=== PATIENT | male | born 1980 | race Caucasian/White ===

== ENCOUNTER 2019-07-12 10:52 | Emergency (ER) | payer BC ==
[~2019-07-12] VITALS: Ht 185.4 cm; Wt 77.1 kg
--- NOTE | 2019-07-12 11:00 | NUR ---
Patient ambulated with stable gait. A/Ox4. Patient came for c/o bilateral wrist pain s/p fall last night. Denies any numbness or tingling, all pulses palpable in LUE. Pain is more dominant on the left side.
--- NOTE | 2019-07-12 11:06 | NUR ---
ERMD at bedside for MSE
[2019-07-12] MEDS ORDERED: IBUPROFEN 800 MG TABLET ONE (11:10)
[2019-07-12] MEDS ORDERED: IBUPROFEN 800 MG TABLET PO ONE (11:15)
--- NOTE | 2019-07-12 12:19 | NUR ---
Patient discharged to home in stable conditon. Written and verbal after care instructions given. Patient verbalizes understanding of instructions. Patient ambulated with stable gait.
[2019-07-12 12:20] VITALS: BP 123/66
== END 2019-07-12 12:22 | disposition home or self-care (01) ==
LOC: ER 10:52
DX: S62.142A Displaced fracture of body of hamate [unciform] bone, left wrist, initial encounter for closed fracture (principal); Z88.8 Allergy status to other drugs, medicaments and biological substances; W19.XXXA Unspecified fall, initial encounter; Y93.89 Activity, other specified; Y92.89 Other specified places as the place of occurrence of the external cause; Y99.8 Other external cause status
CPT/HCPCS: 73110; A4663